=== PATIENT | male | born 1980 | race Caucasian/White ===

== ENCOUNTER 2023-10-12 16:11 | Inpatient (IN) | payer BC, OTHER ==
[~2023-10-12] VITALS: Ht 188 cm; Wt 108.0 kg
[2023-10-12] MEDS: NALOXONE HCL 0.4 MG/ML VIAL IV ONE (17:13)
[2023-10-12 17:40] LABS: Basophils # (auto) 0 10 ^3/uL (0-0.2); Basophils % (auto) 0.2 % (0.0-2.0); Eosinophils # (auto) 0.1 10 ^3/uL (0-0.8); Eosinophils % (auto) 0.3 % (0.0-7.0); Hematocrit 40.5 % (41.0-53.0); Hemoglobin 13.8 g/dL (13.5-17.5); Lymphocytes # (auto) 1.3 10 ^3/uL (0.4-5.4); Lymphocytes % (auto) 6.7 % (10.0-50.0); Mean Corpuscular Hemoglobin 31.7 pg (28.0-32.0); Mean Corpuscular Hgb Conc. 34.1 g/dL (32.0-36.0); Mean Corpuscular Volume 92.9 fL (80.0-100.0); Monocytes # (auto) 0.8 10 ^3/uL (0-1.3); Monocytes % (auto) 4.1 % (0.0-12.0); Neutrophils # (auto) 17.5 10 ^3/uL (1.6-8.6); Neutrophils % (auto) 88.7 % (37.0-80.0); Red Blood Cells 4.36 10^6/uL (4.5-5.90); Red Cell Distribution Width 13.3 % (11.8-14.3); White Blood Cell 19.8 10^3/uL (4.4-10.8)
[2023-10-12 18:00] LABS: Acetaminophen < 2.0 UG/ML (10.0-20.0); Alanine Aminotransferase 143 U/L (7-40); Albumin 4.5 g/dL (3.2-4.8); Alkaline Phosphatase 97 U/L (46-116); Anion Gap 9 (5-15); Aspartate Aminotransferase 143 U/L (13-40); BUN/Creatinine Ratio 11.6 (10.0-20.0); Blood Alcohol < 3.0 mg/dL (<10); Blood Urea Nitrogen 15 mg/dL (9-23); Calcium 9.2 mg/dL (8.5-10.1); Carbon Dioxide 26 mmol/L (20-30); Chloride 98 mmol/L (98-107); Glucose 237 mg/dL (74-106); Potassium 3.1 mmol/L (3.5-5.1); Sodium 133 mmol/L (136-145)
[2023-10-12 18:01] LABS: Bilirubin, Total 0.2 mg/dL (0.2-1.0); Total Protein 6.5 g/dL (5.7-8.2)
[2023-10-12 18:30] LABS: Salicylate < 3.0 mg/dL (2.8-20.0)
[2023-10-12] MEDS: cefTRIAXone 1GM/50ML D5W 50 ML IV ONE (18:34)
[2023-10-12] MEDS: methylPREDNISolone SOD SUCC 125 MG/2 ML VL IV ONE (18:34)
[2023-10-12] MEDS: IPRATROPIUM BROM 0.5 MG/2.5ML INH SOL NEB ONE (19:00)
[2023-10-12] MEDS: ALBUTEROL SULF 2.5 MG/0.5ML(0.5%) NEB SOLN NEB ONE (19:00)
[2023-10-12 19:36] LABS: Lactic Acid w/Reflex 4.5 mmol/L (0.4-2.0)
[2023-10-12] MEDS: AZITHROMYCIN 500MG/ 250ML 250 ML IV ONE (21:15)
[2023-10-12] MEDS ORDERED: DOCUSATE SOD 100 MG CAP PO PRN (21:15)
[2023-10-12] MEDS ORDERED: ACETAMINOPHEN 325 MG TAB PO PRN (21:15)
[2023-10-12] MEDS ORDERED: ONDANSETRON HCL 4 MG/2 ML VIAL IV PRN (21:15)
[2023-10-12] MEDS ORDERED: ALBUTEROL SULF 2.5 MG/0.5ML(0.5%) NEB SOLN NEB PRN (21:15)
[2023-10-12] MEDS ORDERED: IPRATROPIUM BROM 0.5 MG/2.5ML INH SOL NEB PRN (21:15)
[2023-10-12] MEDS ORDERED: IBUPROFEN 600 MG TAB PO PRN (21:45)
[2023-10-12] MEDS: methylPREDNISolone SOD SUCC 40 MG/ML VL IV SCH (22:00)
[2023-10-12 22:16] VITALS: BP 131/75; PULSE 84; RESP 20; O2SAT 96
[2023-10-12] MEDS ORDERED: NITROGLYCERIN 0.4 MG SL TAB SL PRN (23:00)
[2023-10-12] MEDS ORDERED: MORPHINE SULFATE INJ 2 MG/ml SYRG IV PRN (23:00)
[2023-10-13] VITALS (9 sets, daily range): BP systolic 106–136; BP diastolic 54–75; PULSE 76–100; RESP 19–95; TEMP 97.9–99.3; O2SAT 92–95
[2023-10-13] MEDS: SODIUM CHLORIDE 0.9% 1,000 ML IV SCH (00:25)
[2023-10-13 05:47] LABS: Basophils # (auto) 0 10 ^3/uL (0-0.2); Eosinophils # (auto) 0 10 ^3/uL (0-0.8); Hematocrit 37.9 % (41.0-53.0); Hemoglobin 12.6 g/dL (13.5-17.5); Lymphocytes # (auto) 0.5 10 ^3/uL (0.4-5.4); Lymphocytes % (auto) 4.7 % (10.0-50.0); Mean Corpuscular Hgb Conc. 33.2 g/dL (32.0-36.0); Mean Corpuscular Volume 93.3 fL (80.0-100.0); Monocytes # (auto) 0.1 10 ^3/uL (0-1.3); Monocytes % (auto) 1.2 % (0.0-12.0); Neutrophils # (auto) 10.6 10 ^3/uL (1.6-8.6); Neutrophils % (auto) 94.1 % (37.0-80.0); Red Blood Cells 4.06 10^6/uL (4.5-5.90); Red Cell Distribution Width 12.9 % (11.8-14.3); White Blood Cell 11.3 10^3/uL (4.4-10.8)
[2023-10-13] MEDS ORDERED: POTASSIUM CHL 20 Meq TABLET PO ONE (06:15)
[2023-10-13 06:41] LABS: Alanine Aminotransferase 111 U/L (7-40); Albumin 4.3 g/dL (3.2-4.8); Alkaline Phosphatase 72 U/L (46-116); Anion Gap 8 (5-15); Aspartate Aminotransferase 55 U/L (13-40); BUN/Creatinine Ratio 14.7 (10.0-20.0); Blood Urea Nitrogen 15 mg/dL (9-23); Calcium 9.1 mg/dL (8.5-10.1); Carbon Dioxide 25 mmol/L (20-30); Chloride 99 mmol/L (98-107); Glucose 208 mg/dL (74-106); Potassium 3.5 mmol/L (3.5-5.1); Sodium 132 mmol/L (136-145)
[2023-10-13 06:42] LABS: Bilirubin, Total 0.2 mg/dL (0.2-1.0); Total Protein 6.1 g/dL (5.7-8.2)
[2023-10-13 07:43] LABS: Lactic Acid w/Reflex 3.5 mmol/L (0.4-2.0)
[2023-10-13] MEDS: cefTRIAXone 1GM/50ML D5W 50 ML IV SCH (10:07)
[2023-10-13] MEDS: FAMOTIDINE (10MG/ML) 2ML VL IV SCH (10:10)
[2023-10-13] MEDS: AZITHROMYCIN 500MG/ 250ML 250 ML IV SCH (11:34)
[2023-10-13 14:49] LABS: Urine Bacteria None Seen /hpf (None Seen)
[2023-10-13] MEDS: PIPERACILLIN-TAZOB 3.375GM 100 ML IV SCH (14:49)
[2023-10-13 14:53] LABS: Urine Blood Negative /uL (Negative); Urine Clarity Clear (Clear); Urine Color Light-Yellow (Yellow); Urine Protein, UAD Negative (Negative); Urine Specific Gravity 1.013 (1.001-1.035); Urine Urobilinogen Normal (Negative); Urine WBC 1 /hpf (0 - 3)
[2023-10-13 15:05] LABS: Amphetamine Screen, Urine Neg (NEGATIVE); Barbiturate Scree,Urine Neg (NEGATIVE); Benzodiazephine Screen, Urine Neg (NEGATIVE); Cannabinoid Screen, Urine Pos (NEGATIVE); Cocaine Screen, Urine Neg (NEGATIVE); Opiate Scree,Urine Neg (NEGATIVE); Phencyclidine Screen, Urine Neg (NEGATIVE)
[2023-10-13 18:28] LABS: Triglycerides 86 mg/dL (< 150)
[2023-10-13 18:29] LABS: LDL Cholesterol 64 mg/dL (< 100)
[2023-10-13 18:30] LABS: HDL Cholesterol 43 mg/dL (40-59)
[2023-10-13 18:31] LABS: Cholesterol 117 mg/dL (< 200)
[2023-10-14] VITALS (8 sets, daily range): BP systolic 96–125; BP diastolic 41–78; PULSE 63–80; RESP 18–20; TEMP 97.8–98.5; O2SAT 93–98
[2023-10-14 06:54] LABS: Basophils # (auto) 0 10 ^3/uL (0-0.2); Basophils % (auto) 0.1 % (0.0-2.0); Eosinophils # (auto) 0 10 ^3/uL (0-0.8); Eosinophils % (auto) 0.4 % (0.0-7.0); Hemoglobin 11.6 g/dL (13.5-17.5); Lymphocytes # (auto) 2.4 10 ^3/uL (0.4-5.4); Lymphocytes % (auto) 19.9 % (10.0-50.0); Mean Corpuscular Hemoglobin 31.8 pg (28.0-32.0); Mean Corpuscular Volume 93.4 fL (80.0-100.0); Monocytes # (auto) 0.9 10 ^3/uL (0-1.3); Monocytes % (auto) 7.6 % (0.0-12.0); Neutrophils # (auto) 8.6 10 ^3/uL (1.6-8.6); Red Blood Cells 3.64 10^6/uL (4.5-5.90); Red Cell Distribution Width 13.1 % (11.8-14.3)
[2023-10-14 07:01] LABS: Chloride 107 mmol/L (98-107); Potassium 3.5 mmol/L (3.5-5.1); Sodium 140 mmol/L (136-145)
[2023-10-14 07:02] LABS: Anion Gap 5 (5-15); Calcium 8.7 mg/dL (8.7-10.4); Carbon Dioxide 28 mmol/L (20-30)
[2023-10-14 07:08] LABS: BUN/Creatinine Ratio 16.5 (10.0-20.0); Blood Urea Nitrogen 14 mg/dL (9-23); Glucose 95 mg/dL (74-106)
[2023-10-14 09:41] LABS: Hepatitis B Surface Antigen Negative (Negative)
[2023-10-14 10:02] LABS: Hepatitis C Antibody Negative (Negative)
[2023-10-14] MEDS: TEMAZEPAM 15 MG CAP PO ONE (21:37)
[2023-10-15 01:00] VITALS: BP 116/69; PULSE 74; RESP 17; TEMP 98.3; O2SAT 95
[2023-10-15 05:00] VITALS: BP 119/62; PULSE 68; RESP 18; TEMP 97.7; O2SAT 95
[2023-10-15 05:11] LABS: Basophils # (auto) 0 10 ^3/uL (0-0.2); Basophils % (auto) 0.4 % (0.0-2.0); Eosinophils # (auto) 0.2 10 ^3/uL (0-0.8); Eosinophils % (auto) 2.1 % (0.0-7.0); Hematocrit 34.7 % (41.0-53.0); Hemoglobin 12.1 g/dL (13.5-17.5); Lymphocytes # (auto) 1.7 10 ^3/uL (0.4-5.4); Lymphocytes % (auto) 18.3 % (10.0-50.0); Mean Corpuscular Hemoglobin 32.6 pg (28.0-32.0); Mean Corpuscular Hgb Conc. 34.9 g/dL (32.0-36.0); Mean Corpuscular Volume 93.6 fL (80.0-100.0); Monocytes # (auto) 0.7 10 ^3/uL (0-1.3); Monocytes % (auto) 8.1 % (0.0-12.0); Neutrophils # (auto) 6.4 10 ^3/uL (1.6-8.6); Neutrophils % (auto) 71.1 % (37.0-80.0); Red Blood Cells 3.71 10^6/uL (4.5-5.90); Red Cell Distribution Width 13.5 % (11.8-14.3); White Blood Cell 9.1 10^3/uL (4.4-10.8)
[2023-10-15 05:23] LABS: Chloride 109 mmol/L (98-107); Sodium 141 mmol/L (136-145)
[2023-10-15 05:24] LABS: Anion Gap 6 (5-15); Calcium 8.7 mg/dL (8.5-10.1); Carbon Dioxide 26 mmol/L (20-30)
[2023-10-15 05:29] LABS: BUN/Creatinine Ratio 15.6 (10.0-20.0); Blood Urea Nitrogen 15 mg/dL (9-23); Glucose 85 mg/dL (74-106)
[2023-10-15 08:44] VITALS: BP 139/81; PULSE 75; RESP 17; TEMP 98.3; O2SAT 95
[2023-10-15] MEDS ORDERED: AUG875T PO (09:10)
[2023-10-15 10:46] VITALS: BP 139/81; PULSE 75; RESP 17; TEMP 98.3; O2SAT 95
== END 2023-10-15 11:30 | disposition home or self-care (01) | DRG 871 ==
LOC: ER 16:11 → EDBD 16:11 → TELE 22:59 → TELE-WESTW 10-13 01:47 → WEST WING 10-14 23:31
PROVIDERS: ADMIT Internal Medicine; ATTEND Internal Medicine
DX: A41.9 Sepsis, unspecified organism (principal); G92.8 Other toxic encephalopathy; J69.0 Pneumonitis due to inhalation of food and vomit; J96.01 Acute respiratory failure with hypoxia; E87.20 Acidosis, unspecified; T40.411A Poisoning by fentanyl or fentanyl analogs, accidental (unintentional), initial encounter; R73.9 Hyperglycemia, unspecified; F11.10 Opioid abuse, uncomplicated; R74.01 Elevation of levels of liver transaminase levels; E87.6 Hypokalemia; Z79.899 Other long term (current) drug therapy; Y92.89 Other specified places as the place of occurrence of the external cause
CPT/HCPCS: 36415; 36600; 71045; 80048; 80053; 80061; 80307; 80320; 80329; 81001; 82805; 83036; 83605; 83880; 84439; 84443; 85025; 86803; 87040; 87086; 87340; 93005; 93306; 94640; 99291; G0378; J2543; J3490